=== PATIENT | female | born 1990 | race African-American/Black ===

== ENCOUNTER 2017-12-11 00:39 | Emergency (ER) | payer OTHER ==
[~2017-12-11] VITALS: Ht 172.7 cm; Wt 81.6 kg
[2017-12-11 00:55] VITALS: BP 122/78
[2017-12-11] MEDS ORDERED: IBUPROFEN600 MG ORAL (02:33)
[2017-12-11] MEDS ORDERED: CYCLOBENZAPRINE10 MG ORAL (02:33)
[2017-12-11 02:39] VITALS: BP 122/78
--- NOTE | 2017-12-11 09:40 | Diagnostic Imaging Report ---
Indication: Back pain Technique: Continuous helical transaxial imaging of the cervical and thoracic spine was obtained from the lung bases to the pubic symphysis. No IV contrast was administered. Coronal 2-D reformats were also obtained. Study obtained in a Siemens sensation [address] Total Dose length Product (DLP): 1252.[address] Dose Index Volume (CTDIvol): 30.52 mGy Comparison: None Findings: There is no fracture or malalignment identified. No soft tissue swelling identified. Other osseous structures appear intact. The configuration of the vertebral bodies, intervertebral discs appear normal. IMPRESSION: No acute injury. Negative cervical and thoracic spine CT. [facility] has communicated the preliminary results to the Emergency Department. Their findings are largely concordant with this report. The CT scanner at [facility] is accredited by the [employer] and the scans are performed using dose optimization techniques as appropriate to a performed exam including Automatic Exposure control.
--- NOTE | 2017-12-11 10:40 | Diagnostic Imaging Report ---
Indication: Dyspnea Comparison: None A single view chest radiograph was obtained. Findings: Cardiomediastinal appearance is within normal limits for age. Pulmonary vascularity is appropriate. The diaphragmatic contour is smooth and costophrenic angles are sharp. No pleural effusions are identified. The bones are unremarkable. Impression: No acute findings
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
== END 2017-12-11 02:40 | disposition home or self-care (01) ==
LOC: EMR 01:20
DX: S16.1XXA Strain of muscle, fascia and tendon at neck level, initial encounter (principal); S46.911A Strain of unspecified muscle, fascia and tendon at shoulder and upper arm level, right arm, initial encounter; M54.9 Dorsalgia, unspecified; R06.00 Dyspnea, unspecified; V43.52XA Car driver injured in collision with other type car in traffic accident, initial encounter; Y92.410 Unspecified street and highway as the place of occurrence of the external cause
CPT/HCPCS: 71045; 72125; 72128; 81025; 99284

== ENCOUNTER 2018-06-17 22:07 | Emergency (ER) | payer OTHER ==
[~2018-06-17] VITALS: Ht 172.7 cm; Wt 77.1 kg
[~2018-06-17 22:07] MED LIST: CYCLOBENZAPRINE10 MG ORAL; IBUPROFEN600 MG ORAL
[2018-06-17] MEDS ORDERED: VITAMINS (22:19)
[2018-06-17 22:26] VITALS: BP 118/78
--- NOTE | 2018-06-17 22:33 | Emergency Room Report ---
History of Present Illness General Chief Complaint: Edema Source: Patient Present Illness HPI This is a 27-year-old female with no past medical history. She presents with chief complaint is left leg pain and swelling. This been ongoing for almost 2 weeks. No trauma. Pain is 7 out of 10. Worse with palpation. Worse with walking. Better with rest. No other complaint. No family history of DVT. Not on control pill. Allergies: Coded Allergies: No Known Allergies (Unverified , 12/11/17) Patient History Past Medical History: see triage record, old chart reviewed Past Surgical History: none Pertinent Family History: none Social History: Denies: smoking Last Menstrual Period: last month Now: No Immunizations: other Reviewed Nursing Documentation: PMH: Agreed; PSxH: Agreed Nursing Documentation-PMH Past Medical History: No Stated History Review of Systems Eye: Denies: eye pain, blurred vision ENT: Denies: ear pain, nose congestion, throat swelling Respiratory: Denies: cough, shortness of breath Cardiovascular: Denies: chest pain, palpitations Gastrointestinal: Denies: abdominal pain, diarrhea, nausea, vomiting Musculoskeletal: Reports: muscle pain; Denies: back pain, joint pain Skin: Denies: rash Neurological: Denies: headache, numbness Endocrine: Denies: increased thirst, increased urine Hematologic/Lymphatic: Denies: easy bruising All Other Systems: negative except mentioned in HPI Physical Exam Vital Signs Date Time Temp Pulse Resp B/P (MAP) Pulse Ox O2 Delivery O2 Flow Rate FiO2 06/17/18 22:13 97.7 96 18 118/78 96 97.7 vitals normal Sp02 EP Interpretation: reviewed, normal General Appearance: well appearing, no apparent distress, alert Head: normocephalic, atraumatic Eyes: bilateral eye PERRL, bilateral eye EOMI ENT: hearing grossly normal, normal pharynx Neck: full range of motion, supple, no meningismus Respiratory: chest non-tender, lungs clear, normal breath sounds Cardiovascular #1: regular rate, rhythm, no murmur Gastrointestinal: normal bowel sounds, non tender, no mass, no organomegaly, no bruit, non-distended Musculoskeletal: back normal, gait/station normal, normal range of motion, other - Left leg: She has tenderness over the popliteal fossa. There is also mild edema to the calf compared to the right side. No bony tenderness. Pulses normal. Sensation normal. No warmth or redness. Neurologic: alert, oriented x3 Psychiatric: mood/affect normal Skin: warm/dry Medical Decision Making Diagnostic Impression: Primary Impression: Left leg pain ER Course Patient with left leg pain. No evidence of any trauma. No evidence of any fracture, DVT or gunn cyst. Most likely soft tissue injury or edema. We'll discharge home. CT/MRI/US Diagnostic Results CT/MRI/US Diagnostic Results : Imaging Test Ordered: left leg ultrasound Impression negative per host/hostess restaurant Last Vital Signs Date Time Temp Pulse Resp B/P (MAP) Pulse Ox O2 Delivery O2 Flow Rate FiO2 06/17/18 22:26 97.7 18 118/78 96 97.7 06/17/18 22:13 96 Status: improved Disposition: HOME, SELF-CARE Condition: Stable Scripts Ibuprofen* (MOTRIN*) 600 Mg Tablet 600 MG ORAL THREE TIMES A DAY, #30 TAB 0 Refills Prov: CANDY HUSTON M.D. 06/17/18 Additional Instructions: Follow-up with your doctor in 7 days. Elevate leg. Return if symptom worsen. CANDY HUSTON M.D. Jun 17, 2018 22:33
[2018-06-17] MEDS ORDERED: IBUPROFEN600 MG ORAL (23:18)
[2018-06-17 23:24] VITALS: BP 110/70
--- NOTE | 2018-06-17 23:47 | Diagnostic Imaging Report ---
EXAM: US Duplex Left Lower Extremity Veins CLINICAL HISTORY: PAIN TECHNIQUE: Real-time duplex ultrasound scan of the left lower extremity veins integrating B-mode two-dimensional vascular structure, Doppler spectral analysis, color flow Doppler imaging and compression. COMPARISON: No relevant prior studies available. FINDINGS: Deep veins: Unremarkable. No DVT in the visualized common femoral, femoral, proximal deep femoral or popliteal veins. The veins demonstrate normal color flow, are normally compressible, with normal phasic flow and/or augmentation response. Superficial veins: Unremarkable. No thrombus in the visualized great saphenous vein. Soft tissues: No acute findings. No popliteal cyst. IMPRESSION: No evidence for DVT in the visualized portions of the veins of the left lower extremity.
== END 2018-06-17 23:24 | disposition home or self-care (01) ==
LOC: EMR 22:40
DX: M79.605 Pain in left leg (principal); R60.9 Edema, unspecified
CPT/HCPCS: 93971; 99284

== ENCOUNTER 2018-08-11 22:19 | Emergency (ER) | payer OTHER ==
[~2018-08-11] VITALS: Ht 172.7 cm; Wt 68.0 kg
[~2018-08-11 22:19] MED LIST changes: +VITAMINS
[2018-08-11] MEDS ORDERED: IBUPROFEN600 MG ORAL (22:40)
[2018-08-11] MEDS ORDERED: VALIUM5 MG ORAL (22:40)
[2018-08-11] MEDS ORDERED: HYDROCODON-ACE1 EA15 ORAL (22:40)
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
[2018-08-11] MEDS ORDERED: HYDROmorphone 1mg/ml Carpuject IM ONE (22:45)
[2018-08-11 22:47] VITALS: BP 120/76
[2018-08-11 23:11] VITALS: BP 113/89
[2018-08-11 23:14] VITALS: BP 113/89
--- NOTE | 2018-08-12 10:50 | Diagnostic Imaging Report ---
Indication: Neck Pain Findings: 5 views of the cervical spine were obtained. There is no acute fracture identified. Alignment is normal. The open-mouth odontoid view shows an intact dens and good alignment of the lateral masses with respect to the body of C2. There is no soft tissue swelling. Impression: Negative cervical spine examination.
== END 2018-08-11 23:18 | disposition home or self-care (01) ==
LOC: EMR 22:58
DX: S16.1XXA Strain of muscle, fascia and tendon at neck level, initial encounter (principal); V43.62XA Car passenger injured in collision with other type car in traffic accident, initial encounter; Y92.410 Unspecified street and highway as the place of occurrence of the external cause
CPT/HCPCS: 72052; 96372; 99283; J1170

== ENCOUNTER 2018-11-02 00:58 | Emergency (ER) | payer OTHER ==
[~2018-11-02] VITALS: Ht 170.2 cm; Wt 72.6 kg
[~2018-11-02 00:58] MED LIST changes: +HYDROCODON-ACE1 EA15 ORAL; +VALIUM5 MG ORAL
[2018-11-02] MEDS ORDERED: Norco 5mg/325mg tab ORAL ONE (01:15)
[2018-11-02] MEDS ORDERED: NKM (01:15)
--- NOTE | 2018-11-02 01:15 | NUR ---
ED Nurse Note: pt came into ED c/o right ankle pain s/p fall, pt states a big dog was running at her and she fell down stairs and twisted her ankle. pt reports pain 10/10. noted swelling and tenderness on right ankle, cms intact on BLE, cap refill <3sec, +2 pedal pulses, no obvious deformity or contusion or skin wound noted. will cont monitor. ice pack provided for comfort with support.
--- NOTE | 2018-11-02 01:19 | Emergency Room Report ---
History of Present Illness General Chief Complaint: Lower Extremity Injury Source: Patient Present Illness HPI Is a 27-year-old female with no past medical history. She present with chief complaint of right ankle pain. Around 9 PM, she was walking down the steps and missed 2 steps and rolled her ankle. She complaining of pain to the right ankle area. Initially severe to bear weight but now unable to bear weight. Pain is 9 out of 10. Worse with movement. Worse with weightbearing. No knee injury. No other complaint. Allergies: Coded Allergies: No Known Allergies (Unverified , 12/11/17) Patient History Past Medical History: none, see triage record, old chart reviewed Past Surgical History: none Pertinent Family History: none Social History: Denies: smoking Last Menstrual Period: sep 2018 Now: No Immunizations: other Reviewed Nursing Documentation: PMH: Agreed; PSxH: Agreed Nursing Documentation-PMH Past Medical History: No Stated History Review of Systems Eye: Denies: eye pain, blurred vision ENT: Denies: ear pain, nose congestion, throat swelling Respiratory: Denies: cough, shortness of breath Cardiovascular: Denies: chest pain, palpitations Gastrointestinal: Denies: abdominal pain, diarrhea, nausea, vomiting Musculoskeletal: Reports: joint pain, joint swelling; Denies: back pain Skin: Denies: rash Neurological: Denies: headache, numbness Endocrine: Denies: increased thirst, increased urine Hematologic/Lymphatic: Denies: easy bruising All Other Systems: negative except mentioned in HPI Physical Exam Vital Signs Date Time Temp Pulse Resp B/P (MAP) Pulse Ox O2 Delivery O2 Flow Rate FiO2 11/02/18 01:11 98.6 84 16 122/77 96 Room Air vitals esvin Sp02 EP Interpretation: reviewed, normal General Appearance: well appearing, no apparent distress, alert Head: normocephalic, atraumatic Eyes: bilateral eye PERRL, bilateral eye EOMI ENT: hearing grossly normal, normal pharynx Neck: full range of motion, supple, no meningismus Respiratory: chest non-tender, lungs clear, normal breath sounds Cardiovascular #1: regular rate, rhythm, no murmur Gastrointestinal: normal bowel sounds, non tender, no mass, no organomegaly, no bruit, non-distended Musculoskeletal: back normal, normal range of motion, tender - Right ankle: There is diffuse tenderness to the lateral malleolus. Also tenderness to the base of the fifth metatarsal bone. Ankle is stable. Dorsalis pedis pulses normal. Psychiatric: mood/affect normal Skin: warm/dry Procedures Splinting Splinting : Consent: Verbal Location: rt ankle Pre-Made Type: velcro Splint: poserior short Pre-Proc Neuro Vasc Exam: normal Post-Proc Neuro Vasc Exam: normal Patient Tolerated: Well Complications: None Medical Decision Making Diagnostic Impression: Primary Impression: Moderate right ankle sprain Qualified Codes: S93.401A - Sprain of unspecified ligament of right ankle, initial encounter ER Course Patient with ankle sprain. No fracture or dislocation. We'll discharge home. Other X-Ray Diagnostic Results Other X-Ray Diagnostic Results #1: X-Ray ordered: Right ankle x-rays # of Views/Limited Vs Complete: 3 View Indication: Pain EP Interpretation: Yes Interpretation: no dislocation, no soft tissue swelling, no fractures Impression: No acute disease Electronically Signed by: Lukas Narayanan MD Other X-Ray Diagnostic Results #2: X-Ray ordered: Rt foot # of Views/Limited Vs Complete: 3 View Indication: Pain EP Interpretation: Yes Interpretation: no dislocation, no soft tissue swelling, no fractures Impression: No acute disease Electronically Signed by: Lukas Narayanan MD Last Vital Signs Date Time Temp Pulse Resp B/P (MAP) Pulse Ox O2 Delivery O2 Flow Rate FiO2 11/02/18 01:11 98.6 84 16 122/77 96 Room Air Status: improved Disposition: HOME, SELF-CARE Condition: Stable Scripts Ibuprofen* (MOTRIN*) 600 Mg Tablet 600 MG ORAL THREE TIMES A DAY, #30 TAB 0 Refills Prov: Lukas Narayanan MD 11/02/18 Hydrocodone/Acetaminophen 5-325* (HYDROCODONE/ACETAMINOPHEN 5-325*) 1 Each Tablet 1 TAB ORAL Q6H PRN for For Pain, #15 TAB 0 Refills Prov: Lukas Narayanan MD 11/02/18 Patient Instructions: Ankle Sprain Additional Instructions: Elevate ankle. Ice pack to the area. Use crutches as needed. Wear splint. Follow-up with your doctor in 7 days. May need a referral to see orthopedic doctor if not better. Return if worse. Lukas Narayanan MD Nov 02, 2018 01:19
[2018-11-02] MEDS ORDERED: IBUPROFEN600 MG ORAL (01:37)
[2018-11-02] MEDS ORDERED: HYDROCODON-ACE1 EA15 ORAL (01:37)
[2018-11-02 01:55] VITALS: BP 128/74
--- NOTE | 2018-11-02 01:56 | NUR ---
ED Nurse Note: air splint applied per ERMD order and crutches provided, pt returned demonstration properly, pt discharge instruction provided w/ prescription, pt wristband removed, pt education done via discussion and handout, pt advised to follow up with pcp or return to ed if s/s worsen or new s/s develop, pt verbalized understanding and agrees with plan, all belongings left with pt, pt states she will uber home.
--- NOTE | 2018-11-02 10:56 | Diagnostic Imaging Report ---
Indication: Pain, trauma Technique: 3 views of the right ankle Comparison: none Findings: No acute fractures. No dislocations. The joint spaces are preserved Impression: Negative
--- NOTE | 2018-11-02 10:56 | Diagnostic Imaging Report ---
Indication: Pain, trauma Technique: 3 views right foot Comparison: none Findings: No acute fractures. No dislocations. The joint spaces are preserved. Impression: Negative
== END 2018-11-02 01:55 | disposition home or self-care (01) ==
LOC: EMR 01:21
DX: S93.401A Sprain of unspecified ligament of right ankle, initial encounter (principal); X50.1XXA Overexertion from prolonged static or awkward postures, initial encounter; Y92.89 Other specified places as the place of occurrence of the external cause
CPT/HCPCS: 29515; 99283

== ENCOUNTER 2020-10-06 18:29 | Emergency (ER) | payer MEDICAID, OTHER ==
[~2020-10-06] VITALS: Ht 172.7 cm; Wt 77.1 kg
[~2020-10-06 18:29] MED LIST changes: +NKM
--- NOTE | 2020-10-06 18:42 | NUR ---
ED Nurse Note: pt presents to ED c/o "sharp, throbbing" tooth pain from a broken tooth on the R side of her mouth. pt states that her gums are swollen and it has been painful for 2 days. pt reports having a dentist appt on 10/14/2019
[2020-10-06 18:43] VITALS: BP 137/79
--- NOTE | 2020-10-06 18:57 | Emergency Room Report ---
History of Present Illness General Chief Complaint: Toothache Source: Patient Present Illness HPI 29-year-old female with reportedly no past medical history presents today with toothache after she chipped her tooth 2 days ago. Patient states the pain is worsened in severity. She has an appointment to see her dentist in 8 days. Location is right upper tooth, severity is moderate, quality is throbbing, timin g is 2 days ago. Patient states she has tried Advil with no relief. No other associated signs or symptoms. PMH: [Denies] PSH: [Denies] Smoking: [Denies] Ethanol: [Denies] Drug: [Denies] Allergies: Coded Allergies: No Known Allergies (Unverified , 12/11/17) COVID-19 Screening Contact w/high risk pt: No Experienced COVID-19 symptoms?: No COVID-19 Testing performed SLIPPER [employer]ER: No Patient History Last Menstrual Period: 09/29 Nursing Documentation-PMH Past Medical History: No Stated History Review of Systems Narrative Review of systems: CONST: No fevers or chills, No night sweats EYES: No eye pain, vision change, eye discharge HEAD/EARS/NOSE/THROAT: +tooth pain, No earache, sore throat, or nasal discharge. PULMONARY: No SOB, no cough, no wheezing CARDIAC: No chest pain, No palpitations, no leg swelling GI: No abdominal pain, no vomiting, no diarrhea , no melena or BRBPR : No flank pain, no dysuria, no hematuria, no frequency. MUSCULOSKELETAL: No back pain, no neck pain, no leg pain SKIN: No rash, no itching, no bruising NEUROLOGICAL: No headache, no dizziness, no paresthesia , no focal weakness. 14 point Review of Systems is otherwise negative except per HPI Physical Exam Vital Signs Date Time Temp Pulse Resp B/P (MAP) Pulse Ox O2 Delivery O2 Flow Rate FiO2 10/06/20 18:39 98.1 97 19 137/79 (98) 98 Room Air Other Organ Systems Physical Exam: GENERAL: Awake, alert, nontoxic, in no acute distress EYES: EOMI, conjunctiva without pallor HEAD/EARS/NOSE/THROAT: right sided upper tooth with avulsion with surrounding tenderness. No abscess formation. NCAT, oral mucosa moist, external nose and ear normal in appearance, oropharynx clear, no swelling or exudates. NECK: supple, nontender, no spasm, no JVD, no cervical adenopathy RESPIRATORY: no stridor, effort normal, no retractions, no accessory muscle use, BS clear bilaterally, no wheezes, no rhonchi, no rales, no rub. CARDIOVASCULAR: RRR, normal S1 S2, no murmur, no peripheral edema ABDOMINAL /GI: soft, nondistended, nontender, BS normal, no masses, no guarding, no Mcburneys point tenderness, no rebound, no Murpheys sign : No CVA tenderness MUSCULOSKELETAL: All extremities are non-tender, no swelling, FROM, normal strength, normal sensation, cap refill <2 seconds in all extremities EXTREMITIES: no leg swelling, pulses: 2+ brisk and normal in all distal extremities SKIN: No rash, skin is warm and dry. No cyanosis, no pallor NEUROLOGICAL: awake, alert and appropriate, oriented x3, speech normal, motor and sensation grossly intact PSYCHIATRIC: Normal mood, normal affect Medical Decision Making PA Attestation [Sim] Is my supervising Physician whom patient management has been discussed with. Diagnostic Impression: Primary Impression: Toothache Additional Impression: Dental infection ER Course Pt. presents to the ED c/o tooth ache beginning 2 days ago Ddx considered but are not limited to toothache, dental abscess, tooth avulsion, gingival infection Vital signs: are WNL, pt. is afebrile H&PE are most consistent with ORDERS: none required at this time, the diagnosis is clinical ED INTERVENTIONS AND MDM : Pt was given toradol while here in ER. Given patient states the pain has worsened in severity, recommend we tx with antibiotic to cover for possible dental abscess formation however there is no evidence of severe dental abscess currently on exam. Patient was advised to continue following up with her dentist in 8 days as planned. Strict ER return precautions given. Patient is able tolerate p.o. no evidence of airway obstruction. She was advised to take Tylenol and ibuprofen together at home as needed for pain. DISCHARGE: At this time pt. is stable for d/c to home. Will provide printed patient care instructions, and any necessary prescriptions. Care plan and follow up instructions have been discussed with the patient prior to discharge. Last Vital Signs Date Time Temp Pulse Resp B/P (MAP) Pulse Ox O2 Delivery O2 Flow Rate FiO2 10/06/20 18:43 98.1 19 137/79 98 Room Air 10/06/20 18:39 97 Status: improved Disposition: HOME, SELF-CARE Condition: Stable Scripts Amoxicillin/Potassium Clav 875-125* (AUGMENTIN 875-125 TABLET*) 1 Each Tablet 1 TAB ORAL TWICE A DAY for 7 Days, #14 TAB Prov: Marbella Richard PA-C 10/06/20 Referrals: [facility] Patient Instructions: Dental Abscess, Dental Pain Additional Instructions: Take [id number] Tylenol and ibuprofen at the same time every 8 hours for pain. Take antibiotics as prescribed. Follow up with a Primary Care Provider in 1-2 days, even if your symptoms have resolved. Follow-up with your dentist as scheduled. Return sooner to ED if new symptoms occur, or current symptoms become worse. - Please note that this Emergency Department Report was dictated using [employer] barrel leader technology software, occasionally this can lead to erroneous entry secondary to interpretation by the dictation equipment. Marbella Richard PA-C Oct 06, 2020 18:57
[2020-10-06] MEDS ORDERED: AUGMENTIN 875-1 EAC1 ORAL (19:22)
[2020-10-06] MEDS ORDERED: Ketorolac 30mg Inj IM ONE (19:30)
[2020-10-06 19:40] VITALS: BP 137/79
--- NOTE | 2020-10-06 19:40 | NUR ---
ER DISCHARGE NOTE: Patient is cleared to be discharged per ERMD, pt is aox4, on room air, with stable vital signs. pt was given dc and prescription instructions, pt was able to verbalize understanding, pt id band removed without complications. pt is able to ambulate with steady gait. pt took all belongings.
== END 2020-10-06 19:40 | disposition home or self-care (01) ==
LOC: EMR 19:40
DX: K08.89 Other specified disorders of teeth and supporting structures (principal); K04.7 Periapical abscess without sinus
CPT/HCPCS: 81025; 96372; J1885; Z7502; 99283